=== PATIENT | female | born 1990 | race African-American/Black ===

== ENCOUNTER 2020-12-11 16:42 | Emergency (ER) | payer OTHER ==
[~2020-12-11] VITALS: Ht 165.1 cm; Wt 127.7 kg
[2020-12-11 16:58] VITALS: BP 132/74
[2020-12-11] MEDS ORDERED: CHLO15MO2 PO (17:03)
--- NOTE | 2020-12-11 17:03 | PHYS DOC ---
Adult General HPI HPI Patient is a 30-year-old female who presents to the emergency department for pain control of her dental pain. Patient states she was seen yesterday at urgent care and started on clindamycin related to an allergy to penicillin and sulfa, patient states that she has been taking Tylenol for her pain and is still experiencing a 10/10 on a 1-10 pain scale. Patient is currently 15 weeks 5 days . Denies having any problems with this current other than taking 81 mg aspirin as a for function for preeclampsia, is followed closely by her NURSE REVIEWER. Patient's pain is right upper posterior molar pain for the past 3 days has been experiencing 10/10 pain. Review of Systems Review of Systems 14 body systems of review of systems have been reviewed. See HPI for pertinent positives and negative responses, otherwise all other systems are negative, nonpertinent or noncontributory. Physical Exam Physical Exam Constitutional: Well developed, well nourished, no acute distress, non-toxic appearance. HENT: Normocephalic, atraumatic, bilateral external ears normal, oropharynx moist, no oral exudates, nose normal. Moderate gingivitis, patient's area of complaint noted broken tooth most upper rear right molar, no abscess, no drainage, no deep tissue infection appreciated. Eyes: PERRLA, EOMI, conjunctiva normal, no discharge. Neck: Normal range of motion, no tenderness, supple, no stridor. Cardiovascular:Heart rate regular rhythm, no murmur Lungs & Thorax: Bilateral breath sounds clear to auscultation Abdomen: Bowel sounds normal, soft, no tenderness, no masses, no pulsatile masses. Skin: Warm, dry, no erythema, no rash. Back: No tenderness, no CVA tenderness. Extremities: No tenderness, no cyanosis, no clubbing, ROM intact, no edema. Neurologic: Alert and oriented X 3, normal motor function, normal sensory function, no focal deficits noted. Psychologic: Affect normal, judgement normal, mood normal. EKG EKG [] Radiology/Procedures Radiology/Procedures [] Heart Score Risk Factors: Risk Factors: DM, Current or recent (<one month) smoker, HTN, HLP, family history of CAD, obesity. Risk Scores: Risk Factors: DM, Current or recent (<one month) smoker, HTN, HLP, family history of CAD, obesity. Course & Med Decision Making Course & Med Decision Making Pertinent Labs and Imaging studies reviewed. (See chart for details) 30-year-old female, vital signs reviewed, presents emergency department for pain control of her dental pain. Patient started on clindamycin yesterday, states that she cannot take the pain any longer rating at a 10/10 on a 1-10 pain scale. Patient is 3 para 2, 15 weeks 5 days per EDC, is currently taking 81 mg aspirin followed by her NURSE REVIEWER. Discussed with patient related to and high risk that I can only recommend Tylenol for her pain. Recommended to patient to call her NURSE REVIEWER specialist to follow her dental pain control as she is a high risk . Patient gave verbal understanding of discharge home instructions, prescription instructions for Peridex swish and spit, follow-up with dentist soon, return to the emergency department for worsening symptoms or other concerns, call NURSE REVIEWER for recommendation of further pain control. Dragon Disclaimer Dragon Disclaimer This electronic medical record was generated, in whole or in part, using a voice recognition dictation system. Departure Departure: Impression: Primary Impression: Dentalgia Disposition: 01 DC HOME SELF CARE/HOMELESS Condition: GOOD Referrals: BOB MATSON (PCP) Patient Instructions: Dental Caries Additional Instructions: Please continue to eat take Tylenol as directed for pain, use Peridex swish and spit as directed, follow-up with the dentist soon, return to the emergency department for worsening symptoms or other concerns. EMERGENCY DEPARTMENT GENERAL DISCHARGE INSTRUCTIONS Thank you for coming to [facility] ([facility]) today and trusting us with you care. We trust that you had a positivie experience in our Emergency Department. If you wish to speak to the department management, you may call the director at [phone]. YOUR FOLLOW UP INSTRUCTIONS ARE FOLLOWS: 1. Do you have a private Doctor? If you do not have a private doctor, please ask for a resource list of physicians or clinics that may be able to assist you with follow up care. 2. The Emergency Physician has interpreted your x-rays. The X-Ray specialist will also review them. If there is a change in the findings, you will be notified in 48 hours when at all possible. 3. A lab test or culture has been done, your results will be reviewed and you will be notified if you need a change in treatment. ADDITIONAL INSTRUCTIONS AND INFORMATION: 1. Your care today has been supervised by a physician who is specially trained in emergency care. Many problems require more than one evaluation for a complete diagnosis and treatment. We recommend that you schedule your follow up appointment as recommended to ensure complete treatment of you illness or injury. If you are unable to obtain follow up care and continue to have a problem, or if your condition worsens, we recommend that you return to the ED. 2. We are not able to safely determine your condition over the phone nor are we able to give sound medical advice over the phone. For these safety reasons, if you call for medical advice we will ask you to come to the ED for further evaluation. 3. If you have any questions regarding these discharge instructions please call the ED at [phone]. SAFETY INFORMATION: In the interest of safety, wellness, and injury prevention; we encourage you to wear your sealbelt, if you smoke; quite smoking, and we encourage family to use a protective helmet for bicycling and other sporting events that present an increased risk for head injury. IF YOUR SYMPTOMS WORSEN OR NEW SYMPTOMS DEVELOP, OR YOU HAVE CONCERNS ABOUT YOUR CONDITION; OR IF YOUR CONDITION WORSENS WHILE YOU ARE WAITING FOR YOUR FOLLOW UP APPOINTMENT; EITHER CONTACT YOUR PRIMARY CARE DOCTOR, THE PHYSICIAN WHOSE NAME AND NUMBER YOU WERE GIVEN, OR RETURN TO THE ED IMMEDIATELY. Scripts Chlorhexidine Gluconate (PERIDEX) 15 Ml Mouthwash 15-30 ML PO TID for DENTAL INFECTION for 8 Days, #473 ML 0 Refills SWISH AND SPIT 1 TO 2 TABLESPOONS THREE TIMES A DAY FOR THE NEXT 7 TO 10 DAYS Prov: KAT PADILLA APRN 12/11/20 KAT PADILLA APRN Dec 11, 2020 17:03
== END 2020-12-11 17:08 | disposition home or self-care (01) ==
LOC: ER 16:42
DX: O26.892 Other specified pregnancy related conditions, second trimester (principal); K08.89 Other specified disorders of teeth and supporting structures; Z3A.15 15 weeks gestation of pregnancy
CPT/HCPCS: 99282